=== PATIENT | male | born 1955 | race Caucasian/White ===

== ENCOUNTER 2017-02-05 22:47 | Emergency (ER) | payer MEDICARE, MEDICAID ==
[~2017-02-05] VITALS: Ht 182.9 cm; Wt 56.8 kg
[2017-02-05 22:55] VITALS: Ht 182.9 cm; Wt 56.8 kg
[2017-02-06] MEDS ORDERED: ONDANSETRON 4 MG INJ IV STA (01:26)
[2017-02-06] MEDS ORDERED: SOD CHLORIDE 0.9% 1,000 ML IV STA (01:26)
[2017-02-06] MEDS ORDERED: LORAZEPAM 2 MG INJ IV ONE (01:30)
[2017-02-06 02:07] LABS: BASOPHILS % 0.5 % (0.0-2.0); EOSINOPHILS % 0.5 % (0.0-7.0); HEMATOCRIT 42.2 % (42.0-52.0); HEMOGLOBIN 15.3 g/dl (14.0-18.0); LYMPHOCYTES # 1.6 10^3/ul (0.8-2.9); LYMPHOCYTES % 18.3 % (15.0-51.0); MEAN CORPUSCULAR HEMOGLOBIN 34.2 pg (29.0-33.0); MEAN CORPUSCULAR HGB CONC 36.3 g/dl (32.0-37.0); MEAN CORPUSCULAR VOLUME 94.2 fl (82.0-101.0); MEAN PLATELET VOLUME 10.1 fl (7.4-10.4); MONOCYTE # 0.3 10^3/ul (0.3-0.9); NEUTROPHILS % 77.4 % (39.0-77.0); PLATELET COUNT 233 10^3/UL (140-415); RED BLOOD COUNT 4.48 10^6/ul (4.70-6.10); RED CELL DISTRIBUTION WIDTH 12.5 % (11.5-14.5); WHITE BLOOD COUNT 8.8 10^3/ul (4.8-10.8)
[2017-02-06 02:27] LABS: ALANINE AMINOTRANSFERASE 158 IU/L (13-69); ALBUMIN/GLOBULIN RATIO 1.25; ALKALINE PHOSPHATASE 162 IU/L (42-121); ANION GAP 17 (8-16); ASPARTATE AMINO TRANSFERASE 74 IU/L (15-46); BILIRUBIN,INDIRECT 0.8 mg/dl (0-1.1); BILIRUBIN,TOTAL 0.8 mg/dl (0.2-1.3); BLOOD UREA NITROGEN 22 mg/dl (7-20); CALCIUM 10.1 mg/dl (8.4-10.2); CARBON DIOXIDE 29 mmol/L (21-31); CHLORIDE 99 mmol/L (97-110); CREATININE 0.75 mg/dl (0.61-1.24); GLUCOSE 208 mg/dl (70-220); POTASSIUM 4.1 mmol/L (3.5-5.1); SODIUM 141 mmol/L (135-144)
--- NOTE | 2017-02-06 03:30 | ERD ---
ER Documentation Chief Complaint Date/Time DATE: 02/06/17 TIME: 03:29 Chief Complaint vomit x 4 days. Denies abd pain/diarrhea. see note HPI 61-year-old male was vomiting for 4 days. Denies abdominal pain or diarrhea. Patient has been noncompliant with his meds. Denies any fevers or chills. Denies any seizure-like activity. Complaints of feeling dehydrated. No focal neurological complaints. ROS All systems reviewed and are negative except as per history of present illness. Allergies Allergies: Coded Allergies: No Known Allergy (Unverified , 02/05/17) PMhx/Soc History of Surgery: Yes (left heel, right great toe amputation) Anesthesia Reaction: No Hx Neurological Disorder: Yes (seizures) Hx Respiratory Disorders: No Hx Cardiac Disorders: No Hx Psychiatric Problems: Yes (bipolar) Hx Miscellaneous Medical Probl: Yes (dm) Hx Alcohol Use: No Hx Substance Use: No Hx Tobacco Use: Yes Smoking Status: Current every day smoker Physical Exam Vitals Vital Signs Date Time Temp Pulse Resp B/P Pulse Ox O2 Delivery O2 Flow Rate FiO2 02/05/17 22:55 98.5 97 18 129/71 99 Physical Exam Const: [] Head: Atraumatic Eyes: Normal Conjunctiva ENT: Normal External Ears, Nose and Mouth. Neck: Full range of motion..~ No meningismus. Resp: Clear to auscultation bilaterally Cardio: Regular rate and rhythm, no murmurs Abd: Soft, non tender, non distended. Normal bowel sounds Skin: No petechiae or rashes Back: No midline or flank tenderness Ext: No cyanosis, or edema Neur: Awake and alert Psych: Normal Mood and Affect Result Diagram: 02/06/17 0141 02/06/17 0141 Results 24 hrs Laboratory Tests Test 02/06/17 01:41 White Blood Count 8.810^3/ul Red Blood Count 4.4810^6/ul Hemoglobin 15.3g/dl Hematocrit 42.2% Mean Corpuscular Volume 94.2fl Mean Corpuscular Hemoglobin 34.2pg Mean Corpuscular Hemoglobin Concent 36.3g/dl Red Cell Distribution Width 12.5% Platelet Count 42774^3/UL Mean Platelet Volume 10.1fl Neutrophils % 77.4% Lymphocytes % 18.3% Monocytes % 3.0% Eosinophils % 0.5% Basophils % 0.5% Nucleated Red Blood Cells % 0.0/100WBC Neutrophils # (Manual) 6.810^3/ul Lymphocytes # 1.610^3/ul Monocytes # 0.310^3/ul Eosinophils # 0.010^3/ul Basophils # 0.010^3/ul Nucleated Red Blood Cells # 0.010^3/ul Sodium Level 141mmol/L Potassium Level 4.1mmol/L Chloride Level 99mmol/L Carbon Dioxide Level 29mmol/L Anion Gap 17 Blood Urea Nitrogen 22mg/dl Creatinine 0.75mg/dl Glucose Level 208mg/dl Calcium Level 10.1mg/dl Total Bilirubin 0.8mg/dl Direct Bilirubin 0.00mg/dl Indirect Bilirubin 0.8mg/dl Aspartate Amino Transf (AST/SGOT) 74IU/L Alanine Aminotransferase (ALT/SGPT) 158IU/L Alkaline Phosphatase 162IU/L Total Protein 9.0g/dl Albumin 5.0g/dl Globulin 4.00g/dl Albumin/Globulin Ratio 1.25 Lipase < 10U/L Current Medications Medications (Trade) Dose Ordered Sig/Megha Route PRN Reason Start Time Stop Time Status Last Admin Dose Admin Sodium Chloride (NS) 1,000 ml @ 1,000 mls/hr Q1H STAT IV 02/06/17 01:26 02/06/17 02:25 DC 02/06/17 02:11 Ondansetron HCl (Zofran Inj) 4 mg ONCE STAT IV 02/06/17 01:26 02/06/17 01:28 DC 02/06/17 02:11 Lorazepam (Ativan) 1 mg ONCE ONCE IV 02/06/17 01:30 02/06/17 01:31 DC 02/06/17 02:11 Procedures/MDM Medical decision-making: Patient here with noncompliance of medications. Given Ativan for withdrawal symptoms with no response. Hydrated here in the ER. Patient will be discharged home. Departure Diagnosis: Primary Impression: Dehydration Condition: Stable JAMARCUS FARMER Feb 06, 2017 03:30
[2017-02-06] MEDS ORDERED: LORA1TAB PO (03:31)
[2017-02-06] MEDS ORDERED: CARB400T PO (03:31)
[2017-02-06 03:48] VITALS: BP 121/86; PULSE 76; RESP 18
== END 2017-02-06 03:48 | disposition home or self-care (01) ==
LOC: E/R 22:47
DX: E86.0 Dehydration (principal); E11.9 Type 2 diabetes mellitus without complications; F17.210 Nicotine dependence, cigarettes, uncomplicated
CPT/HCPCS: 36415; 80053; 83690; 85025; 93005; 96374; 96375; 99284; J2060; J2405; J7030

== ENCOUNTER → 2017-03-18 | Outpatient (CLI) | payer MEDICARE, MEDICAID ==
[~2017-03-18] MED LIST: CARB400T PO; LORA1TAB PO
--- NOTE | 2017-03-18 15:34 | RADRPT ---
PROCEDURE: XR Left Heel. CLINICAL INDICATION: Left heel pain. TECHNIQUE: Two views of the left heel are available for review. Lateral and axial. COMPARISON: None available FINDINGS: There are 2 screws in the calcaneus and a single pin. There are displaced nonunited fractures of the posterior calcaneus outside the fixation devices. There are 3 fracture fragments noted. There is no other fracture and there is no dislocation. Articular surfaces are intact. There is no lytic or blastic lesion. IMPRESSION: 1. Nonunited fractures of the calcaneus with fracture fixation devices noted adjacent to the fractu res. RPTAT: QQ .Ant Palomares MD, MD Date Time Electronically viewed and signed by .Ant Palomares MD, on 03/18/2017 15:34 .R/
== END | disposition home or self-care (01) ==
LOC: RAD 15:00
PROVIDERS: ATTEND Internal Medicine
DX: S92.002A Unspecified fracture of left calcaneus, initial encounter for closed fracture (principal); X58.XXXA Exposure to other specified factors, initial encounter

== ENCOUNTER 2017-05-31 14:20 | Emergency (ER) | payer MEDICARE, MEDICAID ==
[~2017-05-31] VITALS: Ht 167.6 cm; Wt 65.0 kg
[2017-05-31 14:31] VITALS: Ht 167.6 cm; Wt 65.0 kg
[2017-05-31] MEDS ORDERED: ELIM TOP (15:54)
--- NOTE | 2017-05-31 16:38 | ERD ---
ER Documentation Chief Complaint Chief Complaint Complains of a rash/ skin infection HPI 61-year-old male patient with a past medical history of diabetes presents to the ED complaining of a skin rash that has been going on for 3 weeks. States that "this girl" who has the same rash has been applying white cream all over his body and also has the same rash. Reports that it is itchy and he has been scratching significantly. States that he has tried triamcinolone cream but has not found relief. Reports that he may have used Permethrin in the past. Denies any chest pain, shortness of breath, fever, chills, nausea, vomiting, diarrhea, sore throat, rhinorrhea. Denies any exposure to pets or insects. Denies using any new creams, detergents, wearing any new clothes. ROS All systems reviewed and are negative except as per history of present illness. Medications Home Meds Active Scripts Permethrin* (Elimite*) 5% Cr, 1 APPLIC TOP ONCE, #1 TUB Prov:RUFUS DIAL PA-C 05/31/17 Lorazepam* (Lorazepam*) 1 Mg Tablet, 1 MG PO BID Y for ANXIETY, #14 TAB Prov:JAMARCUS FARMER 02/06/17 Carbamazepine* (Tegretol Xr*) 400 Mg Tab.sr.12h, 400 MG PO Q12, #90 TAB.SA Prov:JAMARCUS FARMER. 02/06/17 Allergies Allergies: Coded Allergies: No Known Allergy (Unverified , 05/31/17) PMhx/Soc History of Surgery: Yes (left heel, right great toe amputation) Anesthesia Reaction: No Hx Neurological Disorder: Yes (seizures) Hx Respiratory Disorders: No Hx Cardiac Disorders: No Hx Psychiatric Problems: Yes (bipolar) Hx Miscellaneous Medical Probl: Yes (dm) Hx Alcohol Use: Yes Hx Substance Use: No Hx Tobacco Use: Yes Smoking Status: Current every day smoker Physical Exam Vitals Vital Signs Date Time Temp Pulse Resp B/P Pulse Ox O2 Delivery O2 Flow Rate FiO2 05/31/17 17:02 100/79 05/31/17 14:31 97.9 67 20 96/55 99 Physical Exam Const: [id number], well-nourished. In no acute distress. Head: Atraumatic, normocephalic Eyes: Normal Conjunctiva without injection. No purulent discharge. PERRL. EOMI ENT: Normal external ear. Ear canal without erythema. Tympanic membrane pearly esposito without effusion or bulging. Nasal canal clear with normal turbinates. Moist oropharynx without tonsillar exudates. Non-erythematous pharynx. Uvula midline. No drooling. No trismus. Neck: Full range of motion. No meningismus. No cervical lymphadenopathy. Resp: Clear to auscultation bilaterally. No wheezing, rhonchi, rales, or crackles. No accessory muscle use. No retractions. Cardio: Regular rate and rhythm. No murmurs, rubs or gallops. Abd: Soft, non tender, non distended. Normal bowel sounds. No palpable masses. No rebound tenderness. No guarding. Skin: No petechiae or rashes Back: No midline tenderness. No CVA tenderness. Ext: No cyanosis, or edema. Neur: Awake and alert. Psych: Normal Mood and Affect Procedures/MDM 61-year-old homeless male patient with a past medical history of diabetes presents to the ED complaining of a skin rash that occurred 3 weeks ago. Patient is afebrile and nontoxic-appearing. Patient likely has scabies. Low suspicion for anaphylaxis, SJS/TEN, TSS, Lyme' s Disease, syphilis, RMSF, shingles, disseminated gonorrhea chlamydia, DIC, TTP , ITP, erythema multiforme, sepsis, cellulitis, necrotizing fascitis, gangrene, meningococcemia, allergic contact dermatitis, urticaria, eczema, tinea infection , or other emergent conditions. Correction resources given to patient however patient was strictly instructed to be cleared by his primary care physician before admission to shelters as this is contagious. This was discussed with my supervising physician, Dr. Eric who agreed with the management and discharge plan. Discharge medications: Permethrin Follow up with primary care physician in 1-2 days. Instructed patient to return to the ED sooner for any worsening symptoms. Patient's questions were answered. Patient understood and agreed with discharge plan. Patient discharged stable. Departure Diagnosis: Primary Impression: Rash and other nonspecific skin eruption Condition: Stable Patient Instructions: Scabies Referrals: MARSHA JACKSON MD (PCP) [facility] YOU HAVE RECEIVED A MEDICAL SCREENING EXAM AND THE RESULTS INDICATE THAT YOU DO NOT HAVE A CONDITION THAT REQUIRES URGENT TREATMENT IN THE EMERGENCY DEPARTMENT. FURTHER EVALUATION AND TREATMENT OF YOUR CONDITION CAN WAIT UNTIL YOU ARE SEEN IN YOUR DOCTORS OFFICE WITHIN THE NEXT 1-2 DAYS. IT IS YOUR RESPONSIBILITY TO MAKE AN APPOINTMENT FOR FOLOW-UP CARE. IF YOU HAVE A PRIMARY DOCTOR --you should call your primary doctor and schedule an appointment IF YOU DO NOT HAVE A PRIMARY DOCTOR YOU CAN CALL OUR PHYSICIAN REFERRAL HOTLINE AT IF YOU CAN NOT AFFORD TO SEE A PHYSICIAN YOU CAN CHOSE FROM THE FOLLOWING [facility] [address] [facility] [address] [facility] [address] [facility] [facility] [address] [address] [facility]. [facility] [address] [facility]. [facility] YOU HAVE RECEIVED A MEDICAL SCREENING EXAM AND THE RESULTS INDICATE THAT YOU DO NOT HAVE A CONDITION THAT REQUIRES URGENT TREATMENT IN THE EMERGENCY DEPARTMENT. FURTHER EVALUATION AND TREATMENT OF YOUR CONDITION CAN WAIT UNTIL YOU ARE SEEN IN YOUR DOCTORS OFFICE WITHIN THE NEXT 1-2 DAYS. IT IS YOUR RESPONSIBILITY TO MAKE AN APPOINTMENT FOR FOLOW-UP CARE. IF YOU HAVE A PRIMARY DOCTOR --you should call your primary doctor and schedule and appointment IF YOU DO NOT HAVE A PRIMARY DOCTOR YOU CAN CALL OUR PHYSICIAN REFERRAL HOTLINE AT . IF YOU CAN NOT AFFORD TO SEE A PHYSICIAN YOU CAN CHOSE FROM THE FOLLOWING [facility]: [facility] [address] [place] [address] [facility] [address] [place] [address] [facility] + [facility] [address] [place] [address] [facility] Additional Instructions: Call your primary care doctor TOMORROW for an appointment during the next 2-3 days.See the doctor sooner or return here if your condition worsens before your appointment time. RUFUS DIAL PA-C May 31, 2017 16:38
[2017-05-31 17:02] VITALS: BP 100/79
== END 2017-05-31 17:03 | disposition home or self-care (01) ==
LOC: FTE 14:20
DX: R21 Rash and other nonspecific skin eruption (principal); E11.9 Type 2 diabetes mellitus without complications; F17.210 Nicotine dependence, cigarettes, uncomplicated
CPT/HCPCS: 99283